=== PATIENT | male | born 1975 | race Asian ===

== ENCOUNTER 2017-06-06 10:30 | Inpatient (IN) | payer OTHER ==
[~2017-06-06] VITALS: Ht 160 cm; Wt 59.4 kg
[2017-06-06 10:38] VITALS: Ht 160 cm; Wt 59.4 kg
[2017-06-06 12:01] LABS: PLATELET COUNT 366 x10^3mcL (130-400); RED CELL DISTRIBUTION WIDTH 13.2 % (11.5-14.5)
[2017-06-06 12:11] LABS: CALCIUM 8.7 mg/dL (8.5-10.1); CARBON DIOXIDE 31.2 mmol/L (21-32); CHLORIDE SERUM 97 mmol/L (98-107); GFR1 > 60 mL/min; GLUCOSE SERUM 109 mg/dL (74-106); SODIUM SERUM 133 mmol/L (136-145)
[2017-06-06 12:16] LABS: ALBUMIN 3.4 g/dL (3.4-5.0); ALKALINE PHOSPHATASE 86 U/L (46-116); ALT/SGPT 47 U/L (16-63); AST/SGOT 25 U/L (15-37); BILIRUBIN TOTAL 0.3 mg/dL (0.20-1.00); TOTAL PROTEIN, SERUM 7.9 g/dL (6.4-8.2)
[2017-06-06 12:54] LABS: BAND NEUTROPHIL 0 % (0-10); BASOPHIL 0 % (0-2); MONOCYTE 16 % (0-7); SEGMENTED NEUTROPHILS 36 % (37-75); rbc morphology (normal/abnorm) ABNORMAL (NORMAL); tear drop cell (dacryocyte) 1+
[2017-06-06 12:55] LABS: PLATELET MORPHOLOGY PLATELETS NORMAL
[2017-06-06] MEDS ORDERED: LANTUS SOLOS100 U/M1 SC (15:29)
[2017-06-06] MEDS ORDERED: NOVI (15:30)
[2017-06-06 16:25] LABS: T3 TOTAL 0.93 ng/mL
[2017-06-06 16:27] VITALS: BP 138/87
[2017-06-06] MEDS ORDERED: HUMALOG100 U/ML SC (16:27)
[2017-06-06 16:38] LABS: FREE T4 0.77 ng/dL (0.76-1.46)
[2017-06-06 16:43] LABS: MAGNESIUM 2.2 mg/dL (1.8-2.4); PHOSPHOROUS 4.3 mg/dL (2.5-4.9)
[2017-06-06 16:48] LABS: CHOLESTEROL/HDL RATIO 4.4; FREE THYROXINE INDEX 1.5 ug/dL (1.4-4.5)
[2017-06-06 18:01] VITALS: BP 138/57
[2017-06-06 20:50] VITALS: BP 137/82
[2017-06-06 21:04] LABS: microscopic required? YES; urine erythrocyte NEGATIVE (NEGATIVE)
[2017-06-06 21:14] LABS: AMPHETAMINE QUAL UR NONE DETECTED (NEG <=1000)
[2017-06-07 05:14] VITALS: BP 127/76
[2017-06-07 05:58] LABS: PLATELET COUNT 326 x10^3mcL (130-400); RED CELL DISTRIBUTION WIDTH 13.6 % (11.5-14.5)
[2017-06-07 06:27] LABS: CALCIUM 8.9 mg/dL (8.5-10.1); CARBON DIOXIDE 30.2 mmol/L (21-32); CHLORIDE SERUM 104 mmol/L (98-107); CREATININE SERUM 1.1 mg/dL (0.7-1.3); GFR1 > 60 mL/min; GLUCOSE SERUM 120 mg/dL (74-106); MAGNESIUM 1.9 mg/dL (1.8-2.4); PHOSPHOROUS 3.5 mg/dL (2.5-4.9); POTASSIUM SERUM 4.3 mmol/L (3.5-5.1); SODIUM SERUM 143 mmol/L (136-145)
[2017-06-07 10:12] VITALS: BP 160/70
[2017-06-07 10:27] LABS: BAND NEUTROPHIL 1 % (0-10); BASOPHIL 0 % (0-2); MONOCYTE 23 % (0-7); SEGMENTED NEUTROPHILS 49 % (37-75)
[2017-06-07 10:28] LABS: PLATELET MORPHOLOGY GIANT PLATELET SEEN; rbc morphology (normal/abnorm) ABNORMAL (NORMAL); tear drop cell (dacryocyte) 1+
[2017-06-07 10:35] VITALS: BP 116/74
[2017-06-07 13:07] VITALS: BP 125/75
[2017-06-07 16:46] VITALS: BP 128/79
[2017-06-07 22:21] VITALS: BP 123/85
[2017-06-08 06:08] VITALS: BP 112/77
[2017-06-08 06:11] LABS: CALCIUM 8.8 mg/dL (8.5-10.1); CARBON DIOXIDE 28.9 mmol/L (21-32); CHLORIDE SERUM 103 mmol/L (98-107); GFR1 > 60 mL/min; GLUCOSE SERUM 101 mg/dL (74-106); POTASSIUM SERUM 4.6 mmol/L (3.5-5.1); SODIUM SERUM 138 mmol/L (136-145)
[2017-06-08 06:13] LABS: BASOPHIL % 1.9 % (0-2); PLATELET COUNT 324 x10^3mcL (130-400)
[2017-06-08 09:59] VITALS: BP 134/92
[2017-06-08] MEDS ORDERED: NOR5 PO (10:35)
[2017-06-08] MEDS ORDERED: LIPITOR10 MG GT (10:36)
[2017-06-08] MEDS ORDERED: GOOD SENSE ASPI81 M3 PO (10:36)
[2017-06-08] MEDS ORDERED: [UNRECOGNIZED DRUG - REMARK] TOP (10:37)
[2017-06-08] MEDS ORDERED: LIDC TOP (10:38)
[2017-06-08] MEDS ORDERED: KEFLEX500 M1 PO (10:39)
[2017-06-08 11:18] VITALS: BP 134/92
== END 2017-06-08 12:35 | disposition home or self-care (01) | DRG 299 ==
LOC: ED 10:30 → DU 14:59 → MU 14:59 → DU 16:07 → MU 06-08 08:06
PROVIDERS: Emergency Medicine; Family Medicine Sports Medicine
DX: E10.51 Type 1 diabetes mellitus with diabetic peripheral angiopathy without gangrene (principal); N17.0 Acute kidney failure with tubular necrosis; E87.1 Hypo-osmolality and hyponatremia; Z83.3 Family history of diabetes mellitus; Z82.49 Family history of ischemic heart disease and other diseases of the circulatory system; E03.9 Hypothyroidism, unspecified; E87.8 Other disorders of electrolyte and fluid balance, not elsewhere classified; I65.8 Occlusion and stenosis of other precerebral arteries; B35.1 Tinea unguium; L60.0 Ingrowing nail; I87.2 Venous insufficiency (chronic) (peripheral)
CPT/HCPCS: 82962; 83880; 84439; J0690; J1815; J1885; J7030; Q0092

== ENCOUNTER 2017-06-18 10:25 | Inpatient (IN) | payer OTHER ==
[2017-06-18] VITALS (10 sets, daily range): BP systolic 85–174; BP diastolic 49–113; Ht 154.9 cm; Wt 69.3 kg
[~2017-06-18] VITALS: Ht 154.9 cm; Wt 69.3 kg
[~2017-06-18 10:25] MED LIST: GOOD SENSE ASPI81 M3 PO; HUMALOG100 U/ML SC; KEFLEX500 M1 PO; LANTUS SOLOS100 U/M1 SC; LIDC TOP; LIPITOR10 MG GT; NOR5 PO; NOVI; [UNRECOGNIZED DRUG - REMARK] TOP
[2017-06-18 11:04] LABS: BASOPHIL % 0.9 % (0-2); PLATELET COUNT 374 x10^3mcL (130-400); RED CELL DISTRIBUTION WIDTH 13.5 % (11.5-14.5)
[2017-06-18 11:17] LABS: CALCIUM 8.3 mg/dL (8.5-10.1); CARBON DIOXIDE 18.5 mmol/L (21-32); CREATININE SERUM 1.5 mg/dL (0.7-1.3); POTASSIUM SERUM 3.7 mmol/L (3.5-5.1)
[2017-06-18 11:21] LABS: ALBUMIN 3.4 g/dL (3.4-5.0); BILIRUBIN TOTAL 0.3 mg/dL (0.20-1.00); TOTAL PROTEIN, SERUM 7.8 g/dL (6.4-8.2)
[2017-06-18 11:35] LABS: UA SPECIFIC GRAVITY 1.025 (1.005-1.035); microscopic required? YES; urine erythrocyte 2+ (NEGATIVE)
[2017-06-18 13:44] LABS: CHOLESTEROL/HDL RATIO 3.8; MAGNESIUM 2.3 mg/dL (1.8-2.4); PHOSPHOROUS 7.1 mg/dL (2.5-4.9)
[2017-06-18 13:45] LABS: FREE T4 0.58 ng/dL (0.76-1.46)
[2017-06-18 13:46] LABS: FREE THYROXINE INDEX 1.1 ug/dL (1.4-4.5); T4(THYROXINE) 2.9 ug/dL (4.7-13.3)
[2017-06-18 14:17] LABS: T3 TOTAL 0.81 ng/mL
[2017-06-18 17:14] LABS: CARBON DIOXIDE 28.6 mmol/L (21-32); CHLORIDE SERUM 106 mmol/L (98-107); CREATININE SERUM 1.1 mg/dL (0.7-1.3); GFR1 > 60 mL/min; GLUCOSE SERUM 89 mg/dL (74-106); POTASSIUM SERUM 4.2 mmol/L (3.5-5.1); SODIUM SERUM 141 mmol/L (136-145)
[2017-06-18 20:29] LABS: CALCIUM 7.5 mg/dL (8.5-10.1); CARBON DIOXIDE 25.4 mmol/L (21-32); CHLORIDE SERUM 104 mmol/L (98-107); CREATININE SERUM 1.3 mg/dL (0.7-1.3); GFR1 > 60 mL/min; GLUCOSE SERUM 143 mg/dL (74-106); SODIUM SERUM 138 mmol/L (136-145)
[2017-06-18] MEDS ORDERED: LIPITOR10 MG PO (20:34)
[2017-06-19] VITALS (19 sets, daily range): BP systolic 93–143; BP diastolic 54–105
[2017-06-19 01:32] LABS: CALCIUM 7.4 mg/dL (8.5-10.1); CARBON DIOXIDE 24.8 mmol/L (21-32); CREATININE SERUM 1.5 mg/dL (0.7-1.3); POTASSIUM SERUM 4.4 mmol/L (3.5-5.1)
[2017-06-19 05:29] LABS: PLATELET COUNT 278 x10^3mcL (130-400); RED CELL DISTRIBUTION WIDTH 13.4 % (11.5-14.5)
[2017-06-19 05:39] LABS: CALCIUM 7.6 mg/dL (8.5-10.1); CARBON DIOXIDE 23.6 mmol/L (21-32); CHLORIDE SERUM 103 mmol/L (98-107); CREATININE SERUM 1.3 mg/dL (0.7-1.3); GFR1 > 60 mL/min; GLUCOSE SERUM 226 mg/dL (74-106); POTASSIUM SERUM 4.1 mmol/L (3.5-5.1); SODIUM SERUM 135 mmol/L (136-145)
[2017-06-19 05:50] LABS: BAND NEUTROPHIL 7 % (0-10); MONOCYTE 2 % (0-7); SEGMENTED NEUTROPHILS 85 % (37-75)
[2017-06-19 05:51] LABS: PLATELET MORPHOLOGY PLATELETS NORMAL; rbc morphology (normal/abnorm) NORMAL (NORMAL)
[2017-06-20] VITALS (11 sets, daily range): BP systolic 100–143; BP diastolic 60–87
[2017-06-20 05:46] LABS: BASOPHIL % 0.2 % (0-2); PLATELET COUNT 241 x10^3mcL (130-400); RED CELL DISTRIBUTION WIDTH 13.6 % (11.5-14.5)
[2017-06-20 05:59] LABS: CALCIUM 8.4 mg/dL (8.5-10.1); CARBON DIOXIDE 25.4 mmol/L (21-32); CHLORIDE SERUM 106 mmol/L (98-107); CREATININE SERUM 1.1 mg/dL (0.7-1.3); GFR1 > 60 mL/min; GLUCOSE SERUM 197 mg/dL (74-106); MAGNESIUM 1.8 mg/dL (1.8-2.4); PHOSPHOROUS 2.4 mg/dL (2.5-4.9); POTASSIUM SERUM 4.1 mmol/L (3.5-5.1); SODIUM SERUM 141 mmol/L (136-145)
[2017-06-21 00:30] VITALS: BP 134/56
[2017-06-21 04:26] VITALS: BP 109/73
[2017-06-21 05:29] LABS: BASOPHIL % 0.6 % (0-2); PLATELET COUNT 246 x10^3mcL (130-400); RED CELL DISTRIBUTION WIDTH 13.4 % (11.5-14.5)
[2017-06-21 05:46] LABS: CARBON DIOXIDE 28.1 mmol/L (21-32); CHLORIDE SERUM 101 mmol/L (98-107); CREATININE SERUM 1.1 mg/dL (0.7-1.3); GFR1 > 60 mL/min; GLUCOSE SERUM 136 mg/dL (74-106); MAGNESIUM 1.8 mg/dL (1.8-2.4); PHOSPHOROUS 4.3 mg/dL (2.5-4.9); POTASSIUM SERUM 3.8 mmol/L (3.5-5.1); SODIUM SERUM 140 mmol/L (136-145)
[2017-06-21 11:47] VITALS: BP 134/71
[2017-06-21 17:50] VITALS: BP 133/70; BP 97/46
[2017-06-21 21:10] VITALS: BP 124/71
[2017-06-22 04:32] VITALS: BP 111/69
[2017-06-22 07:57] LABS: CALCIUM 8.9 mg/dL (8.5-10.1); CARBON DIOXIDE 27.6 mmol/L (21-32); CHLORIDE SERUM 100 mmol/L (98-107); CREATININE SERUM 1.1 mg/dL (0.7-1.3); GFR1 > 60 mL/min; GLUCOSE SERUM 133 mg/dL (74-106); POTASSIUM SERUM 4.1 mmol/L (3.5-5.1); SODIUM SERUM 137 mmol/L (136-145)
[2017-06-22 08:53] LABS: BASOPHIL % 0.3 % (0-2); PLATELET COUNT 281 x10^3mcL (130-400); RED CELL DISTRIBUTION WIDTH 13.2 % (11.5-14.5)
[2017-06-22 09:41] VITALS: BP 108/67
[2017-06-22 11:38] VITALS: BP 108/67
== END 2017-06-22 12:52 | disposition home health service (06) | DRG 208 ==
LOC: ED 10:25 → IC 11:10 → DU 06-21 15:00
PROVIDERS: Emergency Medicine; Family Medicine
PROC: 5A1945Z Respiratory Ventilation, 24-96 Consecutive Hours (ICD-10-PCS; principal; 2017-06-18)
PROC: 0BH17EZ Insertion of Endotracheal Airway into Trachea, Via Natural or Artificial Opening (ICD-10-PCS; 2017-06-18)
PROC: 0CCM7ZZ Extirpation of Matter from Pharynx, Via Natural or Artificial Opening (ICD-10-PCS; 2017-06-18)
PROC: 02HV33Z Insertion of Infusion Device into Superior Vena Cava, Percutaneous Approach (ICD-10-PCS; 2017-06-18)
PROC: B548ZZA Ultrasonography of Superior Vena Cava, Guidance (ICD-10-PCS; 2017-06-18)
DX: J69.0 Pneumonitis due to inhalation of food and vomit (principal); E11.10 Type 2 diabetes mellitus with ketoacidosis without coma; N17.0 Acute kidney failure with tubular necrosis; J96.01 Acute respiratory failure with hypoxia; E11.51 Type 2 diabetes mellitus with diabetic peripheral angiopathy without gangrene; E11.65 Type 2 diabetes mellitus with hyperglycemia; R31.9 Hematuria, unspecified; E83.39 Other disorders of phosphorus metabolism; I10 Essential (primary) hypertension; X58.XXXA Exposure to other specified factors, initial encounter; T17.220A Food in pharynx causing asphyxiation, initial encounter; Q90.9 Down syndrome, unspecified; Z68.28 Body mass index [BMI] 28.0-28.9, adult; Y92.009 Unspecified place in unspecified non-institutional (private) residence as the place of occurrence of the external cause; Z83.3 Family history of diabetes mellitus; Z82.49 Family history of ischemic heart disease and other diseases of the circulatory system
CPT/HCPCS: 36556; 36600; 82962; 83880; 84439; 90658; 92610-GN; 94150; 97110-GP; 97116-GP; 97530-GP; A4628; J1642; J1815; J1940; J1956; J2060; J2704; J3490; J7030; J7042; J7620; Q0092

== ENCOUNTER 2017-06-29 11:24 | Emergency (ER) | payer OTHER ==
[~2017-06-29] VITALS: Ht 152.4 cm; Wt 59.4 kg
[~2017-06-29 11:24] MED LIST changes: +LIPITOR10 MG PO
[2017-06-29 11:28] VITALS: Ht 152.4 cm; Wt 59.4 kg
[2017-06-29 13:38] VITALS: BP 134/63
== END 2017-06-29 13:38 | disposition home or self-care (01) ==
LOC: ED 11:24
DX: I95.2 Hypotension due to drugs (principal); T46.1X5A Adverse effect of calcium-channel blockers, initial encounter; E11.9 Type 2 diabetes mellitus without complications; Q90.9 Down syndrome, unspecified; Y92.89 Other specified places as the place of occurrence of the external cause